=== PATIENT | male | born 1985 | race Two or more races ===

== ENCOUNTER 2017-02-19 13:51 | Emergency (ER) | payer SELFPAY ==
[~2017-02-19] VITALS: Ht 167.6 cm; Wt 86.0 kg
[2017-02-19 13:53] VITALS: BP 120/78
[2017-02-19] MEDS ORDERED: FLUORESCEIN OPHTHALMIC 1 MG STRIP ONE ×2 (14:02→14:11)
[2017-02-19] MEDS ORDERED: PROPARACAINE OPHTH 0.5%, 15ML ONE ×2 (14:02→14:11)
[2017-02-19] MEDS ORDERED: DIPH,PERTUSS(ACELL),TET VAC/PF 0.5 ML IM-VACC ONE ×2 (15:11→15:30)
== END 2017-02-19 15:37 | disposition home or self-care (01) ==
LOC: ED 15:20
DX: T15.02XA Foreign body in cornea, left eye, initial encounter (principal); Z23 Encounter for immunization; X58.XXXA Exposure to other specified factors, initial encounter; Y93.89 Activity, other specified; Y99.8 Other external cause status; Y92.89 Other specified places as the place of occurrence of the external cause
CPT/HCPCS: 90471; 90715